=== PATIENT | male | born 1980 | race Caucasian/White ===

== ENCOUNTER 2021-12-19 11:28 | Inpatient (IN) ==
[2021-12-19] MEDS ORDERED: MULTI-VITAMIN INFUSION 10 ML, THIAMINE HCL 100 MG, FOLIC ACID 1 MG in SODIUM CHLORIDE 0... IV ONE (11:46)
[2021-12-19] MEDS ORDERED: SODIUM CHLORIDE 0.9% 1000ML 1,000 ML IV SCH (12:00)
--- NOTE | 2021-12-19 12:00 | Emergency Department Note ---
Impression & Plan Alcoholic intoxication, Suicidal ideations ED Provider Note NAME: ZULEMA WALLS AGE: 41 SEX: M : 1980 ARRIVES VIA: Walk-In INFORMANT: Patient, ED PROVIDER(S): Rick Faria DO CHIEF COMPLAINT: Detox request HPI: The patient is a 41-year-old male who presented to the emergency department for an evaluation of alcohol use. The patient has a history of going through detox many years ago. He has been doing very well and avoiding any alcohol use until approximately 4 months ago. He started drinking again. He presented to the emergency department with a friend. The patient has been using increasing amounts of alcohol especially over the last week. He has been drinking 6-7 high alcohol content beers especially over the last week. He does have a history of DTs in the past. He has had some nausea. He denies having any abdominal pain or chest pain. He denies having any lower extremity swelling or injuries. The patient denies any drug use. He he states that he presented to the emergency department today because he needs help trying to stop drinking but does not want to go through DTs again. Patient did not have a history of seizures. He does admit to some suicidal ideation but no plan. He does not take any chronic medications. ROS: See above HPI for pertinent positives & negatives. A total of 10 systems reviewed and were otherwise negative. PAST MEDICAL HISTORY: See Below PAST SURGICAL HISTORY: See Below FAMILY HISTORY: See Below SOCIAL HISTORY: See Below HOME MEDICATIONS: See Below ALLERGIES: See Below VITALS: See Below PHYSICAL EXAMINATION: GENERAL: The patient is awake and alert. He is somewhat anxious appearing but overall comfortable. EYES: The conjunctivae are clear. The pupils are round and reactive. EARS, NOSE, MOUTH AND THROAT: The nose is without any evidence of any deformity. NECK: The neck is nontender and supple. RESPIRATORY: Normal respiratory effort is noted there is no evidence of wheezing rhonchi or rales CARDIOVASCULAR: Cardiac rate with regular rhythm was noted. There is no definite murmur. GASTROINTESTINAL: The abdomen is soft. Abdomen is nontender. MUSCULOSKELETAL/EXTREMITIES: There is no evidence of gross deformity full range of motion is noted in the hips and shoulders. SKIN: There is no obvious evidence of any rash. There are no petechiae, pallor or cyanosis noted. NEUROLOGIC: Patient is awake alert and oriented x3 strength is symmetric patellar reflexes are 2+ bilaterally PSYCH: The patient makes good eye contact mostly evaluation. He does admit to suicidal ideation but no specific plan. MEDICAL DECISION MAKING: The patient is a 41-year-old male who presented to the emergency department requesting detox. The patient has a history of having DTs in the past. He p resented to the emergency department and also had some suicidal ideation. The patient was medically cleared in the emergency department. He was reevaluated multiple times. He continues to have a very high alcohol. I discussed his plans with him and at this time he would still like to stop drinking altogether. I do feel this could be dangerous given the patient's history of DTs in the past. For this reason [facility] have agreed to evaluate the patient in the emergency department for further management and disposition. The patient's vital signs did improve while he was in the emergency department. Triage Nursing notes reviewed. Prior medical records reviewed Vital Signs: reviewed and remarkable for tachycardia and elevated blood pressure. Differential diagnosis: Overdose, toxicologic, infection, hypoglycemia, electrolyte abnormalities, cardiac sources, intracerebral event, neurologic, trauma, as well as other pathologies. ER treatment provided: See below Diagnostics interpreted by me: ECG: EKG was obtained in the emergency department. My interpretation is normal sinus rhythm at 94 bpm. There is no ectopy. There is no acute ST segment abnormalities noted. No previous tracing was available. Cardiac Monitoring: An order was placed for continuous cardiac monitoring. The monitor shows a rate of 115 bpm with sinus tachycardia Laboratory studies: As stated above and show below. Imaging studies: See below Consultation(s): I discussed this case with Angeline who [facility]. Past Med/Surg History Medical History Chronic alcohol use Tobacco use Surgical History H/O inguinal hernia repair Social History Smoking Status: Current every day smoker Hx Alcohol Use: Yes Alcohol type: beer Hx Substance Use: Yes Preferred Language: Belarusian Allergies Allergies Allergy/AdvReac Type Severity Reaction Status Date / Time No Known Allergies Allergy Verified 12/19/21 13:34 Home Meds Home Medications Medication Instructions Recorded Confirmed No Known Home Medications 12/19/21 12/19/21 Results & Data (ED) Vital Signs Vital Signs - 24 hr 12/19/21 11:30 12/19/21 11:55 12/19/21 12:05 Temperature 36.8 C Temperature Source Temporal Artery Scan Pulse Rate 124 H Pulse Rate [Apical] 96 H Respiratory Rate 20 21 Blood Pressure 166/96 H Blood Pressure [Left Arm] 147/95 H Blood Pressure Mean 119 Blood Pressure Mean [Left Arm] 112 Blood Pressure Position Sitting Pulse Oximetry 96 97 94 Oxygen Delivery Method Room Air Room Air Room Air Sepsis Recent Fever Within 48 Hours No Sepsis New/Unexplained Change in Mental Status N/A Sepsis Action Taken by Nursing No Action Required 12/19/21 12:30 12/19/21 13:30 12/19/21 14:00 Temperature Temperature Source Pulse Rate 88 95 H 105 H Pulse Rate [Apical] Respiratory Rate 19 17 22 Blood Pressure 137/88 139/85 129/68 Blood Pressure [Left Arm] Blood Pressure Mean 104 103 88 Blood Pressure Mean [Left Arm] Blood Pressure Position Pulse Oximetry 93 91 92 Oxygen Delivery Method Sepsis Recent Fever Within 48 Hours Sepsis New/Unexplained Change in Mental Status Sepsis Action Taken by Nursing 12/19/21 14:30 Temperature Temperature Source Pulse Rate 115 H Pulse Rate [Apical] Respiratory Rate 17 Blood Pressure 150/99 H Blood Pressure [Left Arm] Blood Pressure Mean 116 Blood Pressure Mean [Left Arm] Blood Pressure Position Pulse Oximetry 94 Oxygen Delivery Method Sepsis Recent Fever Within 48 Hours Sepsis New/Unexplained Change in Mental Status Sepsis Action Taken by Usp Medications Current Medication List: was personally reviewed by me Laboratory Data Attestation: I reviewed the patient's lab results. Result diagrams: 12/19/21 11:55 12/19/21 11:55 Lab Results 12/19/21 12/19/21 12/19/21 Range/Units 11:40 11:40 11:55 WBC 7.68 (4.8-10.8) K/uL RBC 5.12 (4.7-6.1) M/uL Hgb 18.0 (14.0-18.0) g/dL Hct 50.8 (42-52) % MCV 99.2 (80-100) fL MCH 35.2 H (25-34) pg MCHC 35.4 (32-36) g/dL RDW Std Deviation 47.3 H (36.4-46.3) fL RDW Coeff of Ivy 13.0 (11.5-14.5) % Plt Count 168 (130-400) K/uL MPV 9.9 (7.4-10.4) fL Immature Gran % (Auto) 0.1 % Neut % (Auto) 64.8 % Lymph % (Auto) 21.6 % [place] % (Auto) 11.7 % Eos % (Auto) 0.8 % Baso % (Auto) 1.0 % Neut # (Auto) 4.97 (1.4-6.5) K/uL Lymph # (Auto) 1.66 (1.2-3.4) K/uL [place] # (Auto) 0.90 H (0.11-0.59) K/uL Eos # (Auto) 0.06 (0-0.5) K/uL Baso # (Auto) 0.08 (0-0.2) K/uL Immature Gran # (Auto) 0.01 (0.00-0.02) K/uL PT (9.0-12.0) Seconds INR (0.9-1.1) APTT (21.0-31.0) Seconds PTT Ratio Sodium (136-145) mmol/L Potassium (3.5-5.1) mmol/L Chloride (98-107) mmol/L Carbon Dioxide (21-32) mmol/L Anion Gap (3-11) BUN (6-23) mg/dl Creatinine (0.6-1.4) mg/dl Est Cr Clr Drug Dosing ml/min Est GFR ( Amer) ml/min Est GFR (Non-Af Amer) ml/min BUN/Creatinine Ratio (10-20) Glucose (70-99(Fasting)) mg/dl Calcium (8.5-10.1) mg/dl Magnesium (1.7-2.4) mg/dl Total Bilirubin (0.2-1.0) mg/dl AST (13-39) U/L ALT (7-52) U/L Alkaline Phosphatase (34-104) U/L Total Creatine Kinase (30-223) U/L Total Protein (6.0-8.3) gm/dl Albumin (3.4-5.0) gm/dl Globulin (2.5-4.0) gm/dl Albumin/Globulin Ratio (0.9-2) Lipase (11-82) U/L Urine Color Dark Yellow Urine Appearance Clear (Clear) Urine pH 6.5 (4.5-7.5) Ur Specific [place] 1.022 (1.000-1.030) Urine Protein Negative (Negative) Urine Glucose (UA) Negative (Negative) Urine Ketones Trace H (Negative) Urine Blood Negative (Negative) Urine Nitrite Negative (Negative) Urine Bilirubin Negative (Negative) Urine Urobilinogen Negative (Negative) Ur Leukocyte Esterase Negative (Negative) Salicylates (3.0-30) mg/dl Urine Opiates Screen Neg (Neg) Ur Methadone, Qual Neg (Neg) Acetaminophen (10-30) ug/ml Urine Barbiturates Neg (Neg) Ur Phencyclidine (PCP) Neg (Neg) U Amphetamin/Meth Scrn Neg (Neg) MDMA (Ecstasy) Screen Neg (Neg) U Benzodiazepines Scrn Neg (Neg) Ur Cocaine Metabolite Neg (Neg) U Marijuana (THC) Screen Neg (Neg) Ethyl Alcohol mg/dL (<10.0) mg/dl SARS-CoV-2, RNA, NAAT (NEGATIVE) 12/19/21 12/19/21 12/19/21 Range/Units 11:55 11:55 11:55 WBC (4.8-10.8) K/uL RBC (4.7-6.1) M/uL Hgb (14.0-18.0) g/dL Hct (42-52) % MCV (80-100) fL MCH (25-34) pg MCHC (32-36) g/dL RDW Std Deviation (36.4-46.3) fL RDW Coeff of Ivy (11.5-14.5) % Plt Count (130-400) K/uL MPV (7.4-10.4) fL Immature Gran % (Auto) % Neut % (Auto) % Lymph % (Auto) % [place] % (Auto) % Eos % (Auto) % Baso % (Auto) % Neut # (Auto) (1.4-6.5) K/uL Lymph # (Auto) (1.2-3.4) K/uL [place] # (Auto) (0.11-0.59) K/uL Eos # (Auto) (0-0.5) K/uL Baso # (Auto) (0-0.2) K/uL Immature Gran # (Auto) (0.00-0.02) K/uL PT 9.8 (9.0-12.0) Seconds INR 0.9 (0.9-1.1) APTT 25.2 (21.0-31.0) Seconds PTT Ratio 0.9 Sodium 138 (136-145) mmol/L Potassium 4.1 (3.5-5.1) mmol/L Chloride 99 (98-107) mmol/L Carbon Dioxide 26 (21-32) mmol/L Anion Gap 13 H (3-11) BUN 13 (6-23) mg/dl Creatinine 0.93 (0.6-1.4) mg/dl Est Cr Clr Drug Dosing 103.2 ml/min Est GFR ( Amer) 119.4 ml/min Est GFR (Non-Af Amer) 103.0 ml/min BUN/Creatinine Ratio 14.0 (10-20) Glucose 103 H (70-99(Fasting)) mg/dl Calcium 8.9 (8.5-10.1) mg/dl Magnesium 2.3 (1.7-2.4) mg/dl Total Bilirubin 0.7 (0.2-1.0) mg/dl AST 46 H (13-39) U/L ALT 18 (7-52) U/L Alkaline Phosphatase 49 (34-104) U/L Total Creatine Kinase 193 (30-223) U/L Total Protein 8.0 (6.0-8.3) gm/dl Albumin 4.3 (3.4-5.0) gm/dl Globulin 3.7 (2.5-4.0) gm/dl Albumin/Globulin Ratio 1.2 (0.9-2) Lipase 67 (11-82) U/L Urine Color Urine Appearance (Clear) Urine pH (4.5-7.5) Ur Specific [place] (1.000-1.030) Urine Protein (Negative) Urine Glucose (UA) (Negative) Urine Ketones (Negative) Urine Blood (Negative) Urine Nitrite (Negative) Urine Bilirubin (Negative) Urine Urobilinogen (Negative) Ur Leukocyte Esterase (Negative) Salicylates (3.0-30) mg/dl Urine Opiates Screen (Neg) Ur Methadone, Qual (Neg) Acetaminophen (10-30) ug/ml Urine Barbiturates (Neg) Ur Phencyclidine (PCP) (Neg) U Amphetamin/Meth Scrn (Neg) MDMA (Ecstasy) Screen (Neg) U Benzodiazepines Scrn (Neg) Ur Cocaine Metabolite (Neg) U Marijuana (THC) Screen (Neg) Ethyl Alcohol mg/dL 385.6 H (<10.0) mg/dl SARS-CoV-2, RNA, NAAT (NEGATIVE) 12/19/21 12/19/21 Range/Units 12:26 14:25 WBC (4.8-10.8) K/uL RBC (4.7-6.1) M/uL Hgb (14.0-18.0) g/dL Hct (42-52) % MCV (80-100) fL MCH (25-34) pg MCHC (32-36) g/dL RDW Std Deviation (36.4-46.3) fL RDW Coeff of Ivy (11.5-14.5) % Plt Count (130-400) K/uL MPV (7.4-10.4) fL Immature Gran % (Auto) % Neut % (Auto) % Lymph % (Auto) % [place] % (Auto) % Eos % (Auto) % Baso % (Auto) % Neut # (Auto) (1.4-6.5) K/uL Lymph # (Auto) (1.2-3.4) K/uL [place] # (Auto) (0.11-0.59) K/uL Eos # (Auto) (0-0.5) K/uL Baso # (Auto) (0-0.2) K/uL Immature Gran # (Auto) (0.00-0.02) K/uL PT (9.0-12.0) Seconds INR (0.9-1.1) APTT (21.0-31.0) Seconds PTT Ratio Sodium (136-145) mmol/L Potassium (3.5-5.1) mmol/L Chloride (98-107) mmol/L Carbon Dioxide (21-32) mmol/L Anion Gap (3-11) BUN (6-23) mg/dl Creatinine (0.6-1.4) mg/dl Est Cr Clr Drug Dosing ml/min Est GFR ( Amer) ml/min Est GFR (Non-Af Amer) ml/min BUN/Creatinine Ratio (10-20) Glucose (70-99(Fasting)) mg/dl Calcium (8.5-10.1) mg/dl Magnesium (1.7-2.4) mg/dl Total Bilirubin (0.2-1.0) mg/dl AST (13-39) U/L ALT (7-52) U/L Alkaline Phosphatase (34-104) U/L Total Creatine Kinase (30-223) U/L Total Protein (6.0-8.3) gm/dl Albumin (3.4-5.0) gm/dl Globulin (2.5-4.0) gm/dl Albumin/Globulin Ratio (0.9-2) Lipase (11-82) U/L Urine Color Urine Appearance (Clear) Urine pH (4.5-7.5) Ur Specific [place] (1.000-1.030) Urine Protein (Negative) Urine Glucose (UA) (Negative) Urine Ketones (Negative) Urine Blood (Negative) Urine Nitrite (Negative) Urine Bilirubin (Negative) Urine Urobilinogen (Negative) Ur Leukocyte Esterase (Negative) Salicylates < 3.0 L (3.0-30) mg/dl Urine Opiates Screen (Neg) Ur Methadone, Qual (Neg) Acetaminophen < 3 L (10-30) ug/ml Urine Barbiturates (Neg) Ur Phencyclidine (PCP) (Neg) U Amphetamin/Meth Scrn (Neg) MDMA (Ecstasy) Screen (Neg) U Benzodiazepines Scrn (Neg) Ur Cocaine Metabolite (Neg) U Marijuana (THC) Screen (Neg) Ethyl Alcohol mg/dL (<10.0) mg/dl SARS-CoV-2, RNA, NAAT NEGATIVE (NEGATIVE) Administered Medications Discontinued Medications Sodium Chloride (Nss 1000ml) 1,000 mls @ 999 mls/hr IV .Q1H1M [place] Stop: 12/19/21 13:00 Last Infusion: 12/19/21 13:02 Dose: 0 mls/hr Documented by: [id number] Admin: 12/19/21 12:01 Dose: 999 mls/hr Documented by: [id number] Multivitamins 10 ml/ Thiamine HCl 100 mg/ Folic Acid 1 mg/Sodium Chloride 1,011.2 mls @ 1,011.2 mls/hr IV .Q1H ONE Stop: 12/19/21 12:45 Last Infusion: 12/19/21 13:45 Dose: 0 mls/hr Documented by: [id number] Admin: 12/19/21 12:42 Dose: 1,011.2 mls/hr Documented by: [id number] Discharge Plan Visit Data Chief Complaint: Detox Request Stated Complaint: MENTAL HEALTH ISSUE, DETOXING ED Provider: Rick Faria Discharge Problem: Alcoholic intoxication, Suicidal ideations Patient Disposition: Being Evaluated by Hospitalist Forms Stand Alone Forms: [facility], Suicide Prevention Resources Prescriptions Prescriptions: No Action No Known Home Medications RF: 0 Referrals Referrals: PCP,NO [Primary Care Provider] - Discharge Problem: Alcoholic intoxication Qualifiers: Complication of substance-induced condition: uncomplicated Qualified Code(s): F10.920 - Alcohol use, unspecified with intoxication, uncomplicated
[2021-12-19 12:13] LABS: Appearance Urine Clear (Clear); Bilirubin Urine Negative (Negative); Blood Urine Negative (Negative); Color Urine Dark Yellow; Glucose Urine UA Negative (Negative); Ketones Urine Trace (Negative); Leukocyte Esterase Urine Negative (Negative); Nitrite Urine Negative (Negative); Protein Urine Negative (Negative); Specific Gravity Urine 1.022 (1.000-1.030); Urobilinogen Urine Negative (Negative); pH Urine 6.5 (4.5-7.5)
[2021-12-19 12:19] LABS: Basophils # (auto) 0.08 K/uL (0-0.2); Eosinophils # (auto) 0.06 K/uL (0-0.5); Eosinophils % (auto) 0.8 %; Hematocrit (blood only) 50.8 % (42-52); Immature Granulocytes # (auto) 0.01 K/uL (0.00-0.02); Immature Granulocytes % (auto) 0.1 %; Lymphocytes # (auto) 1.66 K/uL (1.2-3.4); Lymphocytes % (auto) 21.6 %; Mean Corpuscular Hemoglobin 35.2 pg (25-34); Mean Corpuscular Hgb Conc 35.4 g/dL (32-36); Mean Corpuscular Volume 99.2 fL (80-100); Mean Platelet Volume 9.9 fL (7.4-10.4); Monocytes % (auto) 11.7 %; Neutrophils # (auto) 4.97 K/uL (1.4-6.5); Neutrophils % (auto) 64.8 %; Platelet Count 168 K/uL (130-400); RDW Standard Deviation 47.3 fL (36.4-46.3); Red Blood Count 5.12 M/uL (4.7-6.1); White Blood Count 7.68 K/uL (4.8-10.8)
[2021-12-19 12:24] LABS: INR 0.9 (0.9-1.1); Partial Thromboplastin Ratio 0.9; Partial Thromboplastin Time 25.2 Seconds (21.0-31.0); Prothrombin Time 9.8 Seconds (9.0-12.0)
[2021-12-19 12:45] LABS: Albumin Globulin Ratio 1.2 (0.9-2); Albumin Level 4.3 gm/dl (3.4-5.0); Bilirubin,Total 0.7 mg/dl (0.2-1.0); Calcium 8.9 mg/dl (8.5-10.1); Creatinine Clr Calc Pharmacy 103.2 ml/min; Est GFR (African American) 119.4 ml/min; Globulin 3.7 gm/dl (2.5-4.0); Magnesium 2.3 mg/dl (1.7-2.4); Potassium 4.1 mmol/L (3.5-5.1)
[2021-12-19 12:54] LABS: Amphetamines+Metham, Urine Neg (Neg); Barbiturates, Urine Neg (Neg); Benzodiazepine, Urine Neg (Neg); Cocaine, Urine Neg (Neg); MDMA (Ecstacy), Urine Neg (Neg); Methadone, Urine Neg (Neg); Opiate, Urine Neg (Neg); Phencyclidine, Urine Neg (Neg)
[2021-12-19 13:00] LABS: Acetaminophen < 3 ug/ml (10-30); Salicylate < 3.0 mg/dl (3.0-30)
[2021-12-19] MEDS ORDERED: GABAPENTIN 1200MG ALCOHOL WITHDRAWAL LOAD PO STA (14:43)
--- NOTE | 2021-12-19 15:14 | Electrocardiogram Report ---
Test Reason : Blood Pressure : / mmHG Vent. Rate : 094 BPM Atrial Rate : 094 BPM P-R Int : 136 ms QRS Dur : 094 ms QT Int : 336 ms P-R-T Axes : 064 050 032 degrees QTc Int : 420 ms Normal sinus rhythm Normal ECG No previous ECGs available Confirmed by Luis Barcenas ([id number]) on 12/19/2021 3:13:51 PM Referred By: Confirmed By:Carlos A Barcenas
--- NOTE | 2021-12-19 15:27 | History & Physical Report ---
Date of Service December 19, 2021 Assessment & Plan (1) Alcoholic intoxication: (2) Suicidal ideations: (3) Tobacco abuse: (4) Depression: Plan: 41-year-old male who has significant past medical history of alcohol abuse, tobacco abuse, marijuana use and depression who presents to ED requesting detoxification request x1 day. Patient previously has prior history of alcohol abuse and has been sober for 6 years. He states he relapsed approximately 2 to 3 weeks ago. His last drink was a.m. of admission. Alcohol abuse/intoxication hx of DTs admit to pcu pt presents to detox request, in setting of hx of DT will admit Gabapentin taper, IV ativan prn daily thiamine, folic acid continue IVF for now awss per protocol Depression Suicidal ideations consult psych 1:1, safe tray, suicide precautions pt denies active plan or homicidal ideations Tobacco abuse nicotine patch encourage cessation DVT ppx: none, ambulate Dispo: PCU, pt denies rehab stating it interferes with prior obligations, strongly encourage pt to attend rehab given relapse PCP: None, pt agrees to establish with PCP FULL CODE Pt was seen and examined in collaboration with Dr. Michael, please see addendum History of Present Illness Chief Complaint: Detox request x 1 day. Primary Care Provider: NO PCP 41-year-old male who has significant past medical history of alcohol abuse, tobacco abuse, marijuana use and depression who presents to ED requesting detoxification request x1 day. Patient previously has prior history of alcohol abuse and has been sober for 6 years. He states he relapsed approximately 2 to 3 weeks ago. His last drink was this morning. He is drinking 5-6 heavy alcohol content beers daily. He states he drinks from a son up to and when he wakes up he starts over again. His last drink was this morning. Over the last 2 to 3 days he also notes increased depression and thoughts of wanting to harm himself. He denies any homicidal ideation and also denies any specific plan to carrying out the suicide thoughts. He admits to prior history of depression in the past and previously had been treated with Prozac and Vistaril. He feels these medications has made his depression worse. He does not see a PCP or outpatient psychiatry or counselor on a regular basis. He states this is what he does for his job and his job has become more stressful. When asked about an inciting event that brought about his relapse he states increased responsibilities at work as well as personal relationships. Continues to smoke a pack of cigarettes a day. He also used marijuana approximately 24 to 36 hours ago but does not use this on a regular basis. He denies any family history of substance abuse or mental health disorders. He states, "I'm the black sheep in the family." He otherwise denies any recent illness, fever, chills, sweats, lightheadedness, dizziness, chest pain, shortness of breath, cough, nausea, vomit, abdominal pain, changes bowel or urinary habits. He does have prior history of alcohol pancreatitis as well as delirium tremens. He denies any seizure-like activity with withdrawal. He states its been many years since he went through withdrawal and is anxious. Allergies Allergy/AdvReac Type Severity Reaction Status Date / Time No Known Allergies Allergy Verified 12/19/21 13:34 Home Medications Medication Instructions Recorded Confirmed Type No Known Home Medications 12/19/21 12/19/21 History Past Med/Surg History Medical History Chronic alcohol use Depression Tobacco use Surgical History H/O inguinal hernia repair Family History (Updated 12/19/21 @ 15:19 by Angeline Loya PA-C) Denies family history of Depression Heart disease Hypertension Stroke Social History (Updated 12/19/21 @ 15:19 by Angeline Loya PA-C) Smoking Status: Current every day smoker packs per day: 1; Years Smoked: 15; Cigarettes Per Day: 20; Hx Alcohol Use: Yes Alcohol type: beer Alcohol Intake Frequency: 4 or More x per/Week Alcohol Intake Frequency Comment: daily, 5-6 heavy alcohol content 24oz beers Hx Substance Use: Yes Non-Prescribed Medications: Marijuana Preferred Language: Upper Sorbian current occupational status: employed Review of Systems Review of Systems: All systems reviewed & are unremarkable except as noted in HPI & below Physical Exam Physical Exam: Constitutional: WD/WN, vitals as above, NAD, sitting up in bed, answers questions approp, smells of alcohol, poor eye contact, tearful Head: Normocephalic, Atraumatic Eyes: injected conjunctiva b/l, PERRL,anicteric sclerae ENMT: external ear and nose normal, oropharynx normal Neck: trachea midline, no thyromegaly normal visual inspection Respiratory: normal respiratory effort, lungs clear to auscultation, no wheeze, rales, rhonchi. Normal insp/exp effort, no accessory muscle use Cardiovascular: Tachycardic rate, regular, no murmur, no edema Vessels: no JVD or carotid bruit Chest: normal inspection of chest Abdomen: normal bowel sounds, soft, nontender, no hepatosplenomegaly Musculoskeletal: no cyanosis or clubbing, AROM x 4 Skin: no rashes, warm and dry normal turgor Neurologic: PERRL, EOMI, accommodation nl, no face palsy, no dysarthria CN's II-XI intact bilaterally and moves all extremities Psychiatric: A+Ox3, dysthymic affect : deferred Results & Data Results & Data ([facility]) Vital Signs (Past 12 Hours) Vital Signs Temp Pulse Pulse Resp BP BP Pulse Ox 12/19/21 15:00 105 H 15 141/88 H 93 12/19/21 14:30 115 H 17 150/99 H 94 12/19/21 14:00 105 H 22 129/68 92 12/19/21 13:30 95 H 17 139/85 91 12/19/21 12:30 88 19 137/88 93 12/19/21 12:05 96 H 21 147/95 H 94 12/19/21 11:55 97 12/19/21 11:30 36.8 C 124 H 20 166/96 H 96 Medications Administered Medication List Gabapentin (Gabapentin 1200mg Loading Dose) 1,200 mg PO TODAY@1600 [facility] Stop: 01/18/22 15:59 Last Admin: 12/19/21 15:07 Dose: 1,200 mg Documented by: [id number] Discontinued Medications Gabapentin (Gabapentin 1200mg Alcohol Withdrawal Load) 1 ea PO NOW STA; Protocol Stop: 12/19/21 14:44 Last Admin: 12/19/21 15:08 Dose: Not Given Documented by: [id number] Sodium Chloride (Nss 1000ml) 1,000 mls @ 999 mls/hr IV .Q1H1M [facility] Stop: 12/19/21 13:00 Last Infusion: 12/19/21 13:02 Dose: 0 mls/hr Documented by: [id number] Admin: 12/19/21 12:01 Dose: 999 mls/hr Documented by: [id number] Multivitamins 10 ml/ Thiamine HCl 100 mg/ Folic Acid 1 mg/Sodium Chloride 1,011.2 mls @ 1,011.2 mls/hr IV .Q1H ONE Stop: 12/19/21 12:45 Last Infusion: 12/19/21 13:45 Dose: 0 mls/hr Documented by: [id number] Admin: 12/19/21 12:42 Dose: 1,011.2 mls/hr Documented by: [id number] ECG Rate (beats per minute): 94 Rhythm: normal sinus COVID-19 Results Results COVID-19 Adm Lab Results: RBC 5.12 M/uL (4.7-6.1) 12/19/21 WBC 7.68 K/uL (4.8-10.8) 12/19/21 Hgb 18.0 g/dL (14.0-18.0) 12/19/21 Hct 50.8 % (42-52) 12/19/21 Plt Count 168 K/uL (130-400) 12/19/21 Neutrophils (%) (Auto) 64.8 % 12/19/21 Lymphocytes (%) (Auto) 21.6 % 12/19/21 Monocytes # (Auto) 0.90 K/uL (0.11-0.59) H 12/19/21 Eosinophils # (Auto) 0.06 K/uL (0-0.5) 12/19/21 Immature Granulocyte % (Auto) 0.1 % 12/19/21 Neutrophils # (Auto) 4.97 K/uL (1.4-6.5) 12/19/21 Lymphocytes # (Auto) 1.66 K/uL (1.2-3.4) 12/19/21 Monocytes # (Auto) 0.90 K/uL (0.11-0.59) H 12/19/21 Eosinophils # (Auto) 0.06 K/uL (0-0.5) 12/19/21 Basophils # (Auto) 0.08 K/uL (0-0.2) 12/19/21 Immature Granulocyte # (Auto) 0.01 K/uL (0.00-0.02) 12/19/21 Na 138 mmol/L (136-145) 12/19/21 K 4.1 mmol/L (3.5-5.1) 12/19/21 Cl 99 mmol/L (98-107) 12/19/21 CO2 26 mmol/L (21-32) 12/19/21 Anion Gap 13 (3-11) H 12/19/21 BUN 13 mg/dl (6-23) 12/19/21 Creatinine 0.93 mg/dl (0.6-1.4) 12/19/21 BUN/Creatinine Ratio 14.0 (10-20) 12/19/21 Glucose Level 103 mg/dl (70-99(Fasting)) H 12/19/21 Ca 8.9 mg/dl (8.5-10.1) 12/19/21 Total Bilirubin 0.7 mg/dl (0.2-1.0) 12/19/21 AST/SGOT 46 U/L (13-39) H 12/19/21 ALT/SGPT 18 U/L (7-52) 12/19/21 Alkaline Phosphatase 49 U/L (34-104) 12/19/21 Total Protein 8.0 gm/dl (6.0-8.3) 12/19/21 Albumin 4.3 gm/dl (3.4-5.0) 12/19/21 Globulin 3.7 gm/dl (2.5-4.0) 12/19/21 Albumin/Globulin Ratio 1.2 (0.9-2) 12/19/21 Total CK 193 U/L (30-223) 12/19/21 PTT 25.2 Seconds (21.0-31.0) 12/19/21 INR 0.9 (0.9-1.1) 12/19/21 SARS-CoV-2, RNA, NAAT NEGATIVE (NEGATIVE) 12/19/21 Code Status & VTE Plan Code Status FULL CODE VTE Prophylaxis Plan VTE Prophylaxis will be ordered: No Supervising Physician Co-Signing Physician Notes Patient was seen and examined independently at bedside. Chart reviewed, case discussed with Angeline MAYES and agree with the documentation above. In summary, Bruno is a 41 year old male with h/o alcohol abuse, tobacco abuse, marijuana abuse who presented to the ED for alcohol abuse seeking detox and suicidal ideation. He had been sober of alcohol for 6 years prior to relapsing 2-3 weeks ago. Last drink was this morning. History of alcohol withdrawal complications with DT in the past. Also has been having involuntary suicidal thoughts involving knife for the past few days but no active plan or attempts; denies any hallucinations. He is mainly concerned about his mental health issue and was asking what the plan would be to address it. AAOx3, sitting comfortably in bed, no withdrawal symptoms as of now, no tremors, chest clear, heart sounds normal, abdomen benign, no edema. Will admit to PCU on telemetry and start on librium taper with ativan prn, given his complicated alcohol withdrawal in the past. Continue AWSS protocol. Will keep on 1:1 until psych evaluation for his suicidal thoughts. NicoDerm patch for tobacco abuse. He declines inpatient alcohol rehab. Rest as per the note above. (1) Alcoholic intoxication Complication of substance-induced condition: uncomplicated Qualified Code(s): F10.920 - Alcohol use, unspecified with intoxication, uncomplicated
[2021-12-19] MEDS ORDERED: GABAPENTIN 1200MG LOADING DOSE PO SCH (16:00)
[2021-12-19] MEDS ORDERED: ONDANSETRON INJ 2 MG/ML 2 ML VIAL IV PRN (17:56)
[2021-12-19] MEDS ORDERED: ATIVAN IV ALCOHOL WITHDRAWL IV PRN (17:56)
[2021-12-19] MEDS ORDERED: GABAPENTIN 600 MG TAB PO ONE (17:56)
[2021-12-19] MEDS ORDERED: MAGNESIUM HYDROXIDE SUSP 30 ML UDC PO PRN (17:56)
[2021-12-19] MEDS ORDERED: ALUMINUM/MAGNESIUM SUSP 30 ML UDC PO PRN (17:56)
[2021-12-19] MEDS ORDERED: ACETAMINOPHEN 325 MG TAB PO PRN (17:56)
[2021-12-19] MEDS ORDERED: POLYETHYLENE (MIRALAX) 17 GM PACK PO PRN (17:56)
[2021-12-19] MEDS ORDERED: LORazepam 2 MG/1 ML VIAL IV PRN ×3 (17:56)
[2021-12-19] MEDS: SODIUM CHLORIDE 0.9% 1000ML 1,000 ML IV SCH (18:32)
[2021-12-19] MEDS: NICOTINE 21 MG/24 HR TDSY TD SCH (18:33)
[2021-12-19] MEDS: FOLIC ACID 1 MG TAB PO SCH (18:33)
[2021-12-19] MEDS: THIAMINE HCL 100 MG TAB PO SCH (18:33)
[2021-12-19] MEDS: chlordiazePOXIDE HCl 25 MG CAP PO SCH (19:55)
[2021-12-19] MEDS ORDERED: chlordiazePOXIDE ALCOHOL WITHDRAWL 50MG PO SCH (20:00)
[2021-12-19] MEDS ORDERED: GABAPENTIN 600 MG TAB PO SCH (20:45)
[2021-12-19] MEDS ORDERED: GABAPENTIN 600MG Q6H DOSE PO SCH (22:00)
[2021-12-20] MEDS: chlordiazePOXIDE HCl 25 MG CAP PO SCH ×3 (01:53→15:00)
[2021-12-20] MEDS: SODIUM CHLORIDE 0.9% 1000ML 1,000 ML IV SCH ×2 (03:16→14:23)
[2021-12-20 06:59] LABS: Basophils # (auto) 0.03 K/uL (0-0.2); Basophils % (auto) 0.5 %; Eosinophils % (auto) 1.8 %; Hematocrit (blood only) 40.4 % (42-52); Hemoglobin 13.8 g/dL (14.0-18.0); Immature Granulocytes # (auto) 0.01 K/uL (0.00-0.02); Immature Granulocytes % (auto) 0.2 %; Lymphocytes # (auto) 1.16 K/uL (1.2-3.4); Lymphocytes % (auto) 20.9 %; Mean Corpuscular Hemoglobin 34.9 pg (25-34); Mean Corpuscular Hgb Conc 34.2 g/dL (32-36); Mean Corpuscular Volume 102.3 fL (80-100); Mean Platelet Volume 9.9 fL (7.4-10.4); Monocytes # (auto) 0.63 K/uL (0.11-0.59); Monocytes % (auto) 11.3 %; Neutrophils # (auto) 3.63 K/uL (1.4-6.5); Neutrophils % (auto) 65.3 %; Platelet Count 120 K/uL (130-400); RDW Coefficient of Variation 12.7 % (11.5-14.5); RDW Standard Deviation 48.5 fL (36.4-46.3); Red Blood Count 3.95 M/uL (4.7-6.1); White Blood Count 5.56 K/uL (4.8-10.8)
[2021-12-20 07:17] LABS: Albumin Globulin Ratio 1.3 (0.9-2); Albumin Level 3.1 gm/dl (3.4-5.0); BUN Creatinine Ratio 14.5 (10-20); Bilirubin,Total 1.2 mg/dl (0.2-1.0); Calcium 7.9 mg/dl (8.5-10.1); Creatinine Clr Calc Pharmacy 126.3 ml/min; Est GFR (African American) 133.2 ml/min; Est GFR (Non-African American) 114.9 ml/min; Globulin 2.4 gm/dl (2.5-4.0); Magnesium 1.9 mg/dl (1.7-2.4); Total Protein 5.5 gm/dl (6.0-8.3)
[2021-12-20] MEDS: THIAMINE HCL 100 MG TAB PO SCH (08:39)
[2021-12-20] MEDS: NICOTINE 21 MG/24 HR TDSY TD SCH (08:39)
[2021-12-20] MEDS: FOLIC ACID 1 MG TAB PO SCH (08:39)
[2021-12-20] MEDS ORDERED: GABAPENTIN 600 MG TAB PO SCH (10:45)
--- NOTE | 2021-12-20 13:13 | Psychiatric Consultation ---
Date of Consultation December 20, 2021 Impression / Recommendations Impression 41 yo man with relapse of alcohol use in context of relationship stressor from past trauma admitted for alcohol withdrawal. Diagnostically consistent with alcohol use disorder and adjustment disorder with mixed emotions. At this point risk of harm to self is low given denial of SI, stable mood, no hx prior attempts, no access to lethal means, hopeful, future-oriented, many reasons to live and motivated to seek treatment for alcohol use and past trauma impact on his current relationship. Chronic risk is low but slightly increased due to history of substance use with substance use treatment being the most significant modifiable risk factor to reduce acute and chronic risk. He does not meet criteria for nor desires inpatient psychiatric treatment. They are not interested in residential treatment at this time but are agreeable to outpatient services to help with substance use and medication assisted treatment. Liver enzymes reviewed and ALT stable, AST slightly elevated (<2x max limit) and stable for treatment with naltrexone and no concurrent opioids. Reviewed risks and benefits of naltrexone including but not limited to liver enzyme changes, potential impact on mood and he consented to starting this. (1) Alcohol use disorder: (2) Adjustment disorder with mixed emotional features: -discontinue 1-on-1 and discontinue suicide precautions -start naltrexone 25mg qd for 3 days then increase to 50mg qd -Psychiatric liason set him up with [place] outpatient follow-up for dual diagnosis therapy -Continue to attend AA/NA -Patient is not an imminent danger to self or others and does not meet criteria for involuntary psychiatric commitment -Continue AWSS as well as thiamine and folic acid Risk Factors Assessment Do You Have Access To A Gun?: No Psych History Identifying Data 41 yo man with a history of alcohol use disorder, had been in sustained remission until about 1 month ago, depression, anxiety and PTSD admitted medically for alcohol withdrawal. Psychiatry was consulted for risk assessment. Chief Complaint "I feel much better". History of Present Illness Bruno reports relapse of alcohol use about 1 month ago in the context of relationship stressors due to his current relationship becoming more serious but this brining up past fears due to a history of trauma with past girlfriend dying by suicide. Over the last week his alcohol use has significantly increased to the point of drinking all weekend and then having to call off from work. While intoxicated yesterday he developed "fleeting thought of suicide" without plan or intent but he's never had SI before so this prompted him to reach out to a friend and come to the ED for help. Since the fleeting SI yesterday prior to admission, which lasted less than 3 minutes, he has had no further SI. He denies current SI and endorses many reasons for living including "everything-my family, great friends, I love my job, I have a really good relationship". He denies any prior suicide attempts. Has no access to a gun. No history of prior psychiatric admissions. Prior to current alcohol relapse he had been sober for 6 years. Prior to that history of heavy alcohol use. Psychiatric ROS negative for symptoms of depression, anxiety, coretta nor psychosis. Past Psychiatric History Outpatient Services: none currently but attends regular AA and NA meetings Previous Psych Admissions: none Do You Have Access To A Gun?: No History of Previous Suicide Attempt: No Past Medication Trials: many years ago fluoxetine and Vistaril Allergies Allergy/AdvReac Type Severity Reaction Status Date / Time No Known Allergies Allergy Verified 12/19/21 13:34 Home Medications Medication Instructions Recorded Confirmed Type No Known Home Medications 12/19/21 12/19/21 History Substance Abuse History see HPI Personal History Employment Status: [employer] Employed Beliefs That Will Affect Care: None Patient History Medical History Chronic alcohol use Depression Tobacco use Surgical History H/O inguinal hernia repair Family History Denies family history of Depression Heart disease Hypertension Stroke Social History Smoking Status: Current every day smoker packs per day: 1; Years Smoked: 15; Cigarettes Per Day: 20; Hx Alcohol Use: Yes Alcohol type: beer Alcohol Intake Frequency: 4 or More x per/Week Alcohol Intake Frequency Comment: daily, 5-6 heavy alcohol content 24oz beers Hx Substance Use: Yes Non-Prescribed Medications: Marijuana Last Used Substance: Just Prior to Arrival Preferred Language: Hungarian Beliefs That Will Affect Care: None Current Living Situation: Alone current occupational status: employed Other Information That Helps Us Care for You: No Feels Safe at Home: Yes Safety Concerns: Feels Safe At This Time Assistive Devices: None Physical Exam Psychiatric: Orientation: alert and oriented x 3 Apperance: appropriately dressed and appropriately groomed Eye Contact: good eye contact Motor Behavior: no abnormal motor movements Speech: normal rate/rhythm/volume of speech Affect: euthymic affect Mood: no depressed mood, no anxious mood and no irritable mood Thought Process: goal directed thought process Thought Content: reality based without delusions Suicidal Thoughts: denies suicidal thoughts Homicidal Thoughts: denies homicidal thoughts Hallucinations: no auditory hallucinations and no visual hallucinations Cognition: recent memory grossly intact, remote memory grossly intact, attention grossly intact and language grossly intact Estimated Intelligence: consistent with education level Insight: + fair insight Judgement: + fair judgement Vital Signs (Past 24 Hours): Last Vital Signs Temp 36.6 C 12/20/21 11:38 Pulse 71 12/20/21 11:38 Resp 18 12/20/21 11:38 BP 154/94 H 12/20/21 11:38 Pulse Ox 97 12/20/21 11:38 Review of Systems All systems reviewed & are unremarkable except as noted in HPI & below Results & Data (PSY) Laboratory Results reviewed AST, ALT Medications Administered Chlordiazepoxide HCl (Chlordiazepoxide Hcl 25 Mg Cap) 50 mg PO Q6H [facility]; Taper Stop: 12/22/21 19:59 Last Admin: 12/20/21 08:41 Dose: 50 mg Documented by: [id number] Admin: 12/20/21 01:53 Dose: 50 mg Documented by: [id number] Admin: 12/19/21 19:55 Dose: 50 mg Documented by: [id number] Folic Acid (Folic Acid 1 Mg Tab) 1 mg PO QAM [facility] Stop: 01/18/22 17:55 Last Admin: 12/20/21 08:39 Dose: 1 mg Documented by: [id number] Admin: 12/19/21 18:33 Dose: 1 mg Documented by: [id number] Miscellaneous (Remove Nicoderm Patch) 1 ea N/A [id number] [facility] Stop: 01/19/22 08:58 Last Admin: 12/20/21 08:39 Dose: 1 ea Documented by: [id number] Nicotine (Nicotine 21 Mg/24 Hr Tdsy) 21 mg TD QAM [facility] Stop: 01/18/22 17:55 Last Admin: 12/20/21 08:39 Dose: 21 mg Documented by: [id number] Admin: 12/19/21 18:33 Dose: 21 mg Documented by: [id number] Thiamine HCl (Thiamine Hcl 100 Mg Tab) 100 mg PO QAM [facility] Stop: 01/18/22 17:55 Last Admin: 12/20/21 08:39 Dose: 100 mg Documented by: [id number] Admin: 12/19/21 18:33 Dose: 100 mg Documented by: [id number] Coding Level of Care Code 53065 Inpt Consult Level 3 Diagnoses Alcohol use disorder Adjustment disorder with mixed emotional features F43.29 Time Spent (min) 25
[2021-12-20] MEDS ORDERED: NALTREXONE HCL 50 MG TAB PO SCH (13:30)
[2021-12-20] MEDS ORDERED: GABAPENTIN 600MG Q8H DOSE PO SCH (14:00)
--- NOTE | 2021-12-20 17:31 | Discharge Summary ---
Date of Service December 20, 2021 Admission HPI Per Admitting Provider 41-year-old male who has significant past medical history of alcohol abuse, tobacco abuse, marijuana use and depression who presents to ED requesting detoxification request x1 day. Patient previously has prior history of alcohol abuse and has been sober for 6 years. He states he relapsed approximately 2 to 3 weeks ago. His last drink was this morning. He is drinking 5-6 heavy alcohol content beers daily. He states he drinks from a son up to and when he wakes up he starts over again. His last drink was this morning. Over the last 2 to 3 days he also notes increased depression and thoughts of wanting to harm himself. He denies any homicidal ideation and also denies any specific plan to carrying out the suicide thoughts. He admits to prior history of depression in the past and previously had been treated with Prozac and Vistaril. He feels these medications has made his depression worse. He does not see a PCP or outpatient psychiatry or counselor on a regular basis. He states this is what yudith does for his job and his job has become more stressful. When asked about an inciting event that brought about his relapse he states increased responsibilities at work as well as personal relationships. Continues to smoke a pack of cigarettes a day. He also used marijuana approximately 24 to 36 hours ago but does not use this on a regular basis. He denies any family history of substance abuse or mental health disorders. He states, "I'm the black sheep in the family." He otherwise denies any recent illness, fever, chills, sweats, lightheadedness, dizziness, chest pain, shortness of breath, cough, nausea, vomit, abdominal pain, changes bowel or urinary habits. He does have prior history of alcohol pancreatitis as well as delirium tremens. He denies any seizure-like activity with withdrawal. He states its been many years since he went through withdrawal and is anxious. Discharge Data Allergies Allergy/AdvReac Type Severity Reaction Status Date / Time No Known Allergies Allergy Verified 12/19/21 13:34 Consultations 12/19/21 14:44 ED Decision to Admit Stat 12/19/21 15:14 Consult Psychiatry Routine Hospital Course (1) Alcoholic intoxication: (2) Suicidal ideations: (3) Tobacco abuse: (4) Depression: 41-year-old male who has significant past medical history of alcohol abuse, tobacco abuse, marijuana use and depression who presents to ED requesting detoxification request x1 day. Patient previously has prior history of alcohol abuse and has been sober for 6 years. He states he relapsed approximately 2 to 3 weeks ago. His last drink was a.m. of admission. Alcohol abuse/intoxication hx of DTs admit to pcu pt presents to detox request, in setting of hx of DT will admit Gabapentin taper, IV ativan prn daily thiamine, folic acid continue IVF for now awss per protocol Depression Suicidal ideations consult psych 1:1, safe tray, suicide precautions pt denies active plan or homicidal ideations Tobacco abuse nicotine patch encourage cessation DVT ppx: none, ambulate Dispo: PCU, pt denies rehab stating it interferes with prior obligations, strongly encourage pt to attend rehab given relapse PCP: None, pt agrees to establish with PCP FULL CODE Pt was seen and examined in collaboration with Dr. Michael, please see addendum Discharge Plan Discharge Items Patient Disposition: Home - Self-Care Reason For Visit: ALCOHOL ABUSE Discharge Diagnosis: (1) Alcoholic intoxication: (2) Adjustment disorder with mixed emotional features:: (3) Tobacco abuse: (4) Depression: Activity: Resume your previous activity Non-emergency contact: Primary Care Provider and Psychiatrist Call non-emergency contact if: you have any medication questions Follow-up/Referrals: PCP,NO [Primary Care Provider] - Diet: Regular Addtl Attending Provider Instructions: Follow up with your primary care provider within 1 week Follow up with psychiatry on 12/27 @ 10:30 AM Advised to seek for help for alcohol treatment inpatient or outpatient therapy Counseling on alcohol cessation Counseling on tobacco cessation Seek urgent medical attention if you develop any symptoms of alcohol withdrawal Check Liver enzymes in 1-2 weeks to monitor liver enzymes Please do not drive or operate any machine after taking the Librium Do not take any opioid while on Naltrexone due to risk of opioid overdose Addtl [employer] Provider Instructions: Psychiatry: [facility] scheduled for 12/27 at 10:30am with therapist Ketan, please call to reschedule if this time won't work for you at [phone] Pending Studies at Discharge: No Stand-Alone Forms: [employer], Smoking Cessation Medications and DC Order Prescriptions: New chlordiazepoxide HCl 10 mg Capsule 10 mg PO UD Qty: 6 RF: 0 naltrexone 50 mg Tablet 25 mg PO UD Qty: 20 RF: 0 folic acid 1 mg Tablet 1 mg PO QAM Qty: 30 RF: 0 thiamine HCl (vitamin B1) 100 mg Tablet 100 mg PO QAM Qty: 30 RF: 0 Discharge Orders: Discharge Order (Routine); Ordered 12/20/21 Ordered By: Garett Cruz Admission Data Admit Date/Time: 12/19/21 14:43 Attending Provider: Garett Cruz Admit Provider: Arnulfo Michael Primary Care Provider: PCP,NO Other Providers: Carole Borrego ; Natalie Verde ; Kinga Tenorio ; Arnulfo Michael
[2021-12-21] MEDS ORDERED: GABAPENTIN 600 MG TAB PO SCH (14:45)
[2021-12-21] MEDS ORDERED: GABAPENTIN 600MG Q12H DOSE PO SCH (18:00)
[2021-12-23] MEDS ORDERED: GABAPENTIN 600 MG TAB PO SCH (02:45)
[2021-12-23] MEDS ORDERED: GABAPENTIN 600MG X1 DOSE PO SCH (06:00)
== END 2021-12-20 17:59 | disposition home or self-care (01) | DRG 897 ==
LOC: ED 11:28 → SUATTDRO 14:43 → 2E 14:43

== ENCOUNTER 2022-02-24 11:55 | Inpatient (IN) ==
[2022-02-24] MEDS ORDERED: MULTI-VITAMIN INFUSION 10 ML, THIAMINE HCL 100 MG, FOLIC ACID 1 MG in SODIUM CHLORIDE 0... IV ONE ×2 (12:09→16:00)
[2022-02-24 12:21] LABS: Basophils # (auto) 0.04 K/uL (0-0.2); Basophils % (auto) 0.4 %; Hematocrit (blood only) 45.5 % (40.1-51.0); Hemoglobin 16.3 g/dl (14.0-18.0); Immature Granulocytes # (auto) 0.04 K/uL (0.00-0.02); Immature Granulocytes % (auto) 0.4 %; Lymphocytes # (auto) 1.64 K/uL (1.2-3.4); Lymphocytes % (auto) 15.7 %; Mean Corpuscular Hemoglobin 33.1 pg (25.0-34.0); Mean Corpuscular Hgb Conc 35.8 g/dL (32.0-36.0); Mean Corpuscular Volume 92.5 fL (80.0-100.0); Mean Platelet Volume 10.2 fL (9.4-12.4); Monocytes # (auto) 0.74 K/uL (0.24-0.82); Monocytes % (auto) 7.1 %; Neutrophils # (auto) 7.97 K/uL (1.4-6.5); Neutrophils % (auto) 76.4 %; Platelet Count 117 K/uL (130-400); RDW Coefficient of Variation 11.9 % (11.5-14.5); RDW Standard Deviation 41.1 fL (36.4-46.3); Red Blood Count 4.92 M/uL (4.63-6.08); White Blood Count 10.43 K/ul (4.8-10.8)
[2022-02-24 12:42] LABS: Acetaminophen < 3 ug/ml (10-30); Salicylate < 3.0 mg/dl (3.0-30)
[2022-02-24 12:45] LABS: Alanine Aminotransferase 27 U/L (7-52); Albumin Globulin Ratio 1.3 (0.9-2); Albumin Level 3.9 gm/dl (3.4-5.0); Alkaline Phosphatase 53 U/L (34-104); Anion Gap 17 (3-11); Aspartate Aminotransferase 54 U/L (13-39); BUN Creatinine Ratio 20.7 (10-20); Bilirubin,Total 1.1 mg/dl (0.2-1.0); Blood Urea Nitrogen 18 mg/dl (6-23); Calcium 8.6 mg/dl (8.5-10.1); Carbon Dioxide 25 mmol/L (21-32); Chloride 92 mmol/L (98-107); Est GFR (African American) 125.1 ml/min; Globulin 2.9 gm/dl (2.5-4.0); Glucose 106 mg/dl (70-99(Fasting)); Lipase 110 U/L (11-82); Magnesium 1.8 mg/dl (1.7-2.4); Potassium 4.2 mmol/L (3.5-5.1); Sodium 134 mmol/L (136-145); Total Protein 6.8 gm/dl (6.0-8.3)
--- NOTE | 2022-02-24 13:25 | Emergency Department Note ---
Impression & Plan Alcoholic intoxication, Alcohol withdrawal syndrome ED Provider Note Provider: Kobe Menard MD DATE OF SERVICE: 02/24/2022 CHIEF COMPLAINT: Alcohol withdrawal concern HISTORY OF PRESENT ILLNESS: Patient is a 42-year-old gentleman history of alcohol abuse and prior hallucinations from withdrawal presenting here today reporting all the wagon least for the last week has been drinking heavily. Patient states he feels quite nauseous. Patient states he wants help to stop drinking. Patient states has been in rehab before and is not sure that he wants to do that again. Patient denies a history of withdrawal seizure but states he had bad withdrawal before including hallucinations. Patient states he was here several months ago and did well with a brief stay and then some medication to control his withdrawal symptoms. Patient denies any trauma. Denies headache or abdominal pain to me. Patient states his last drink was around 9:00 this morning. REVIEW OF SYSTEMS: A total of 10 review of systems was obtained and negative except as stated above in the HPI. PAST MEDICAL HISTORY: As noted above MEDICATIONS: Denies current home medications. SOCIAL HISTORY: Reports cigarette and occasional marijuana use. Denies other drug use. Over the last week significant alcohol use PHYSICAL EXAM: GENERAL: alert and oriented in no acute distress on stretcher fatigued appearing and smells of alcohol Head: normocephalic and atraumatic EYES: No injection, discharge or icterus. PERRL NECK: Trachea midline. Supple. ENT: Mucous membranes pink and somewhat dry LUNGS: Airway patent. No retractions. Breath sounds clear with good air entry bilaterally. HEART: Regular rate and rhythm. No chest wall tenderness ABDOMEN: Soft and non-tender, without guarding or rebound. SKIN: Acyanotic, warm, dry, without rashes EXTREMITIES: Without swelling, tenderness or deformity NEUROLOGICAL: No focal deficits. No aphasia. No facial droop with minimal slurred speech. EK bpm sinus tachycardia. No PVC or PAC. No acute ST segment elevation or depression with a QTC of 460. CONTINUOUS CARDIAC MONITORING: was ordered and showed a heart rate of 90s-100s bpm in normal sinus rhythm to sinus tachycardia Patient's laboratory studies and imaging reviewed. Differential includes Alcohol intoxication, toxicologic, infection, hypoglycemia, electrolyte abnormalities, cardiac sources, intracerebral event, neurologic, trauma, as well as other pathologies. IMPRESSION/MEDICAL DECISION MAKING: Patient with history of alcohol abuse now here after a period of binge drinking over approximately the past week or so. Not able to keep much down the last day or so due to significant vomiting. Patient denies any SI or HI to me. No history of significant evidence of trauma. Blood work without significant anemia or leukocytosis I doubt this is infectious. COVID-negative. Hyponatremia. Given a banana bag here as well as oral fluids. He declined any nausea or stomach medication such as Pepcid. Labs without severe abnormality though is intoxicated. Later a bit more hypertensive and may be the tremulous and given a bit of oral Ativan. Later excepting of some Zofran. Given history of significant withdrawal hallucinations discussed with him possibly staying here for observation. He was in agreement with this and wished for this. Discussed with the hospitalist. DIAGNOSIS: Alcohol intoxication, alcohol withdrawal DISPOSITION: Hospitalist will evaluate Patient was agreeable with this plan. Past Med/Surg History Medical History Chronic alcohol use Depression Tobacco use Surgical History H/O inguinal hernia repair Family History Denies family history of Depression Heart disease Hypertension Stroke Social History Smoking Status: Current every day smoker packs per day: 1; Years Smoked: 15; Cigarettes Per Day: 20; Hx Alcohol Use: Yes Alcohol type: beer Alcohol Intake Frequency: 4 or More x per/Week Alcohol Intake Frequency Comment: daily, 5-6 heavy alcohol content 24oz beers Hx Substance Use: Yes Non-Prescribed Medications: Marijuana Last Used Substance: Just Prior to Arrival Preferred Language: Japanese Beliefs That Will Affect Care: None Current Living Situation: Alone current occupational status: employed Feels Safe at Home: Yes Assistive Devices: None Allergies Allergies Allergy/AdvReac Type Severity Reaction Status Date / Time No Known Allergies Allergy Verified 02/24/22 15:23 Home Meds Home Medications Medication Instructions Recorded Confirmed No Known Home Medications 02/24/22 02/24/22 Results & Data (ED) Vital Signs Vital Signs - 24 hr 02/24/22 12:19 02/24/22 12:17 02/24/22 14:43 Temperature 37.0 C Temperature Source Oral Pulse Rate 100 H Pulse Rate [Radial] 93 H 90 Pulse Rhythm [Radial] Regular Pulse Strength [Radial] Normal Respiratory Rate 20 18 17 Respiratory Effort / Characteristics Non-Labored Non-Labored Respiratory Depth Normal Normal Respiratory Pattern Regular Regular Blood Pressure 121/75 Blood Pressure [Left Arm] 121/75 124/68 Blood Pressure Mean 90 Blood Pressure Mean [Left Arm] 90 86 Blood Pressure Position [Left Arm] Lying Lying Pulse Oximetry 93 93 95 Oxygen Delivery Method Room Air Room Air Room Air Sepsis Recent Fever Within 48 Hours No Sepsis New/Unexplained Change in Mental Status No Sepsis Action Taken by Nursing No Action Required Laboratory Data Result diagrams: 02/24/22 12:09 02/24/22 12:09 Lab Results 02/24/22 02/24/22 02/24/22 Range/Units 12:09 12:09 12:09 WBC 10.43 (4.8-10.8) K/ul RBC 4.92 (4.63-6.08) M/uL Hgb 16.3 (14.0-18.0) g/dl Hct 45.5 (40.1-51.0) % MCV 92.5 (80.0-100.0) fL MCH 33.1 (25.0-34.0) pg MCHC 35.8 (32.0-36.0) g/dL RDW Std Deviation 41.1 (36.4-46.3) fL RDW Coeff of Ivy 11.9 (11.5-14.5) % Plt Count 117 L (130-400) K/uL MPV 10.2 (9.4-12.4) fL Immature Gran % (Auto) 0.4 % Neut % (Auto) 76.4 % Lymph % (Auto) 15.7 % [place] % (Auto) 7.1 % Eos % (Auto) 0.0 % Baso % (Auto) 0.4 % Neut # (Auto) 7.97 H (1.4-6.5) K/uL Lymph # (Auto) 1.64 (1.2-3.4) K/uL [place] # (Auto) 0.74 (0.24-0.82) K/uL Eos # (Auto) 0.00 (0-0.50) K/uL Baso # (Auto) 0.04 (0-0.2) K/uL Immature Gran # (Auto) 0.04 H (0.00-0.02) K/uL Sodium 134 L (136-145) mmol/L Potassium 4.2 (3.5-5.1) mmol/L Chloride 92 L (98-107) mmol/L Carbon Dioxide 25 (21-32) mmol/L Anion Gap 17 H (3-11) BUN 18 (6-23) mg/dl Creatinine 0.87 (0.6-1.4) mg/dl Est Cr Clr Drug Dosing Not Reportable Est GFR ( Amer) 125.1 ml/min Est GFR (Non-Af Amer) 108.0 ml/min BUN/Creatinine Ratio 20.7 H (10-20) Glucose 106 H (70-99(Fasting)) mg/dl Calcium 8.6 (8.5-10.1) mg/dl Magnesium 1.8 (1.7-2.4) mg/dl Total Bilirubin 1.1 H (0.2-1.0) mg/dl AST 54 H (13-39) U/L ALT 27 (7-52) U/L Alkaline Phosphatase 53 (34-104) U/L Total Protein 6.8 (6.0-8.3) gm/dl Albumin 3.9 (3.4-5.0) gm/dl Globulin 2.9 (2.5-4.0) gm/dl Albumin/Globulin Ratio 1.3 (0.9-2) Lipase 110 H (11-82) U/L TSH 0.675 (0.300-4.500) uIu/ml Salicylates (3.0-30) mg/dl Acetaminophen (10-30) ug/ml Ethyl Alcohol mg/dL (<10.0) mg/dl SARS-CoV-2, RNA, NAAT (NEGATIVE) 02/24/22 02/24/22 02/24/22 Range/Units 12:09 12:09 12:35 WBC (4.8-10.8) K/ul RBC (4.63-6.08) M/uL Hgb (14.0-18.0) g/dl Hct (40.1-51.0) % MCV (80.0-100.0) fL MCH (25.0-34.0) pg MCHC (32.0-36.0) g/dL RDW Std Deviation (36.4-46.3) fL RDW Coeff of Ivy (11.5-14.5) % Plt Count (130-400) K/uL MPV (9.4-12.4) fL Immature Gran % (Auto) % Neut % (Auto) % Lymph % (Auto) % [place] % (Auto) % Eos % (Auto) % Baso % (Auto) % Neut # (Auto) (1.4-6.5) K/uL Lymph # (Auto) (1.2-3.4) K/uL [place] # (Auto) (0.24-0.82) K/uL Eos # (Auto) (0-0.50) K/uL Baso # (Auto) (0-0.2) K/uL Immature Gran # (Auto) (0.00-0.02) K/uL Sodium (136-145) mmol/L Potassium (3.5-5.1) mmol/L Chloride (98-107) mmol/L Carbon Dioxide (21-32) mmol/L Anion Gap (3-11) BUN (6-23) mg/dl Creatinine (0.6-1.4) mg/dl Est Cr Clr Drug Dosing Est GFR ( Amer) ml/min Est GFR (Non-Af Amer) ml/min BUN/Creatinine Ratio (10-20) Glucose (70-99(Fasting)) mg/dl Calcium (8.5-10.1) mg/dl Magnesium (1.7-2.4) mg/dl Total Bilirubin (0.2-1.0) mg/dl AST (13-39) U/L ALT (7-52) U/L Alkaline Phosphatase (34-104) U/L Total Protein (6.0-8.3) gm/dl Albumin (3.4-5.0) gm/dl Globulin (2.5-4.0) gm/dl Albumin/Globulin Ratio (0.9-2) Lipase (11-82) U/L TSH (0.300-4.500) uIu/ml Salicylates < 3.0 L (3.0-30) mg/dl Acetaminophen < 3 L (10-30) ug/ml Ethyl Alcohol mg/dL 215.4 H (<10.0) mg/dl SARS-CoV-2, RNA, NAAT NEGATIVE (NEGATIVE) Administered Medications Discontinued Medications Multivitamins 10 ml/ Thiamine HCl 100 mg/ Folic Acid 1 mg/Sodium Chloride 1,011.2 mls @ 1,011.2 mls/hr IV .Q1H ONE Stop: 02/24/22 13:08 Last Infusion: 02/24/22 14:45 Dose: 0 mls/hr Documented By: Admin: 02/24/22 12:41 Dose: 1,011.2 mls/hr Documented By: ALFA Lorazepam (Lorazepam 1 Mg Tab) 2 mg PO NOW STA Stop: 02/24/22 13:35 Last Admin: 02/24/22 13:44 Dose: 2 mg Documented By: ALFA Ondansetron HCl (Ondansetron Inj 2 Mg/Ml 2 Ml Vial) 4 mg IV NOW STA Stop: 02/24/22 13:35 Last Admin: 02/24/22 13:44 Dose: 4 mg Documented By: ALFA Discharge Plan Visit Data Chief Complaint: Alcohol Withdrawal Stated Complaint: ALCOHOL WITHDRAWL SX ED Provider: Kobe Menard Discharge Problem: Alcoholic intoxication, Alcohol withdrawal syndrome Patient Disposition: Being Evaluated by Hospitalist Forms Stand Alone Forms: [facility], Suicide Prevention Resources Prescriptions Prescriptions: No Action No Known Home Medications Referrals Referrals: PCP,NO [Primary Care Provider] -
[2022-02-24] MEDS ORDERED: LORazepam 1 MG TAB PO STA (13:34)
[2022-02-24] MEDS ORDERED: ONDANSETRON INJ 2 MG/ML 2 ML VIAL IV STA (13:34)
[2022-02-24] MEDS ORDERED: GABAPENTIN 1200MG ALCOHOL WITHDRAWAL LOAD PO STA (15:41)
[2022-02-24] MEDS ORDERED: GABAPENTIN 600 MG TAB PO ONE ×2 (15:41→16:45)
[2022-02-24] MEDS ORDERED: LORazepam 1 MG in SYRINGE 0.5 ML IV PRN (15:41)
--- NOTE | 2022-02-24 15:41 | History & Physical Report ---
Date of Service February 24, 2022 Assessment & Plan (1) Alcoholic intoxication: Plan: Known alcoholic and has been drinking heavily for the last 1 week Complaining of hallucination with eyes closed with unsteadiness in gait and general weakness Will be admitted to medical telemetry unit and monitor for withdrawal symptoms (2) Alcohol withdrawal syndrome: Plan: We will put him alcohol withdrawal protocol Check electrolytes and replace as needed Has had prior inpatient rehab but the patient does not want to go to inpatient this time (3) Alcohol abuse: Plan: Continues to use alcohol and has been trying to quit (4) Depression: Plan: Does not take any medications (5) Tobacco use: Plan: Smoke cessation We will put him on nicotine patch DVT prophylaxis SCDs for now CODE STATUS Full History of Present Illness Chief Complaint: Weakness, shaky with tremors Primary Care Provider: NO PCP Is a 42-year-old male with significant past medical history of alcohol abuse with recurrent withdrawal symptoms, tobacco abuse, marijuana abuse and depressio n apparently came to ER with increasing weakness, shakiness and tremors involving the outstretched hands. He also complains to have hallucination especially when he closes eyes. Denies any palpitation , chest pain or shortness of breath. Minimal abdominal discomfort without any nausea and or vomiting. He has been drinking heavily for the last 1 week and the last drink was this morning. Allergies Allergy/AdvReac Type Severity Reaction Status Date / Time No Known Allergies Allergy Verified 02/24/22 15:23 Home Medications Medication Instructions Recorded Confirmed Type No Known Home Medications 02/24/22 02/24/22 History Past Med/Surg History Medical History Alcoholic intoxication Chronic alcohol use Tobacco use Surgical History H/O inguinal hernia repair Family History Denies family history of Depression Heart disease Hypertension Stroke Social History Smoking Status: Current every day smoker packs per day: 1; Years Smoked: 15; Cigarettes Per Day: 20; Hx Alcohol Use: Yes Alcohol type: beer Alcohol Intake Frequency: 4 or More x per/Week Alcohol Intake Frequency Comment: daily, 5-6 heavy alcohol content 24oz beers Hx Substance Use: Yes Non-Prescribed Medications: Marijuana Last Used Substance: Just Prior to Arrival Preferred Language: Tajik Beliefs That Will Affect Care: None Current Living Situation: Alone current occupational status: employed Feels Safe at Home: Yes Assistive Devices: None Review of Systems 2 Review of Systems: All systems reviewed and are unremarkable except as noted below Neurologic: Unsteady gait, tremors and hallucinations with eyes closed Physical Exam Physical Exam: Lying in bed without any apparent distress but looks depressed Constitutional: + ill appearing and + thin Eyes: PERRL, conjunctivae normal, anicteric sclerae ENMT: external ear and nose normal, oropharynx normal Neck: trachea midline, no thyromegaly Respiratory: no respiratory distress Auscultation: lungs clear to auscultation bilaterally Cardiovascular: Rate/Rhythm: regular rate and regular rhythm; not tachycardic Heart Sounds: normal S1 and normal S2; no murmur Extremities: no edema Gastrointestinal (Abdomen): Inspection/Auscultation: normal bowel sounds; abdomen not distended Percussion/Palpation: + abdomen tender (Minimally tender in the epigastric) and abdomen soft Musculoskeletal: No acute arthritis in any joint Neurologic: Alert, awake and oriented x3. Moving all limbs equally. Mild to moderate tremors involving the outstretched hands Lymphatic: no cervical or axillary lymphadenopathy Results & Data Results & Data ([facility]) Vital Signs (Past 12 Hours) Vital Signs Temp Pulse Pulse Resp BP BP Pulse Ox 02/24/22 14:43 90 17 124/68 95 02/24/22 12:17 93 H 18 121/75 93 02/24/22 12:19 37.0 C 100 H 20 121/75 93 O2 Del Method 02/24/22 14:43 Room Air 02/24/22 12:17 Room Air 02/24/22 12:19 Room Air Laboratory Results Short CBC 02/24/22 Range/Units 12:09 WBC 10.43 (4.8-10.8) K/ul Hgb 16.3 (14.0-18.0) g/dl Hct 45.5 (40.1-51.0) % Plt Count 117 L (130-400) K/uL BMP 02/24/22 12:09 Sodium 134 L Potassium 4.2 Chloride 92 L Carbon Dioxide 25 BUN 18 Creatinine 0.87 Glucose 106 H Calcium 8.6 Liver Function 02/24/22 Range/Units 12:09 Total Bilirubin 1.1 H (0.2-1.0) mg/dl AST 54 H (13-39) U/L ALT 27 (7-52) U/L Alkaline Phosphatase 53 (34-104) U/L Albumin 3.9 (3.4-5.0) gm/dl Code Status & VTE Plan VTE Prophylaxis Plan VTE Prophylaxis will be ordered: Yes
[2022-02-24] MEDS ORDERED: ONDANSETRON INJ 2 MG/ML 2 ML VIAL IV PRN (15:46)
[2022-02-24] MEDS: FOLIC ACID 1 MG in SYRINGE 9.8 ML IV SCH (16:27)
[2022-02-24] MEDS: THIAMINE HCL 100 MG in SYRINGE 9 ML IV SCH (16:27)
[2022-02-24 17:02] LABS: Appearance Urine Clear (Clear); Bacteria Urine Automated Negative (Negative); Bilirubin Urine Negative (Negative); Blood Urine Negative (Negative); Color Urine Dark Yellow; Glucose Urine UA Negative (Negative); Ketones Urine 1+ (Negative); Leukocyte Esterase Urine Negative (Negative); Nitrite Urine Negative (Negative); Protein Urine 1+ (Negative); Specific Gravity Urine 1.026 (1.000-1.030); Urobilinogen Urine Negative (Negative); pH Urine 5.5 (4.5-7.5)
[2022-02-24 17:38] LABS: Amphetamines+Metham, Urine Neg (Neg); Barbiturates, Urine Neg (Neg); Benzodiazepine, Urine Neg (Neg); Cocaine, Urine Neg (Neg); MDMA (Ecstacy), Urine Neg (Neg); Methadone, Urine Neg (Neg); Opiate, Urine Neg (Neg); Phencyclidine, Urine Neg (Neg)
[2022-02-24] MEDS: GABAPENTIN 600 MG TAB PO SCH (23:23)
[2022-02-25] MEDS: GABAPENTIN 600 MG TAB PO SCH (05:01)
[2022-02-25 06:41] LABS: Albumin Globulin Ratio 1.5 (0.9-2); Albumin Level 3.2 gm/dl (3.4-5.0); BUN Creatinine Ratio 20.2 (10-20); Bilirubin,Total 2.2 mg/dl (0.2-1.0); Calcium 7.9 mg/dl (8.5-10.1); Creatinine Clr Calc Pharmacy 107.5 ml/min; Est GFR (African American) 126.9 ml/min; Est GFR (Non-African American) 109.5 ml/min; Globulin 2.2 gm/dl (2.5-4.0); Magnesium 1.8 mg/dl (1.7-2.4); Phosphorus 2.8 mg/dl (2.5-4.9); Potassium 3.9 mmol/L (3.5-5.1); Total Protein 5.4 gm/dl (6.0-8.3)
[2022-02-25 06:46] LABS: Basophils # (auto) 0.03 K/uL (0-0.2); Basophils % (auto) 0.4 %; Eosinophils # (auto) 0.04 K/uL (0-0.50); Eosinophils % (auto) 0.5 %; Hematocrit (blood only) 38.6 % (40.1-51.0); Hemoglobin 13.3 g/dl (14.0-18.0); Immature Granulocytes # (auto) 0.02 K/uL (0.00-0.02); Immature Granulocytes % (auto) 0.2 %; Lymphocytes # (auto) 1.25 K/uL (1.2-3.4); Lymphocytes % (auto) 14.9 %; Mean Corpuscular Hgb Conc 34.5 g/dL (32.0-36.0); Mean Corpuscular Volume 95.8 fL (80.0-100.0); Mean Platelet Volume 10.1 fL (9.4-12.4); Monocytes # (auto) 0.69 K/uL (0.24-0.82); Monocytes % (auto) 8.2 %; Neutrophils # (auto) 6.38 K/uL (1.4-6.5); Neutrophils % (auto) 75.8 %; Platelet Count 84 K/uL (130-400); RDW Coefficient of Variation 11.8 % (11.5-14.5); RDW Standard Deviation 41.2 fL (36.4-46.3); Red Blood Count 4.03 M/uL (4.63-6.08); White Blood Count 8.41 K/ul (4.8-10.8)
[2022-02-25] MEDS: FOLIC ACID 1 MG in SYRINGE 9.8 ML IV SCH (07:20)
[2022-02-25] MEDS: THIAMINE HCL 100 MG in SYRINGE 9 ML IV SCH (07:21)
--- NOTE | 2022-02-25 11:13 | Hospitalist Progress Note ---
Date of Service February 25, 2022 Assessment & Plan (1) Alcohol abuse: Plan: Continued to use alcohol and has been trying to quit (2) Alcoholic intoxication: Plan: Last admission, in December, very short known alcoholic and has been drinking heavily for the past few days Previously 5 years sober, he is hoping for being sober for a very long time again He was worried that he could have some withdrawal symptoms, however he feels well today Reports that he has to do outpatient rehab, per his employer He is dedicated to abstinence, also reports good support at home He is eager for discharge Currently does not have any withdrawal symptoms, did not use any as needed Ativan He took gabapentin here, however he does not wish to continue that at home (3) Alcohol withdrawal syndrome: Plan: alcohol withdrawal protocol, as above Check electrolytes and replace as needed Has had prior inpatient rehab but the patient does not want to go to inpatient this time Plans for outpatient rehab, as above (4) Depression: Plan: Does not take any medications (5) Tobacco use: Plan: Smoke cessation nicotine patch DVT prophylaxis SCDs for now CODE STATUS Full Admission and Anticipated Discharge Date Admission Date: February 24, 2022 Subjective Patient seen in follow-up of alcohol abuse Patient admitted yesterday, as he was having nausea, and was worried he may have some issues with withdrawal He is sitting up in bed, in no acute distress Denies any tremors or hallucinations Nausea has resolved and he is able to eat He is eager for discharge, reports that he will do outpatient rehab, as this is required by his employer Denies any fevers, chills, chest pain, shortness of breath, palpitations He has been ambulating without difficulty Reports good support system at home Review of Systems Review of Systems: All systems reviewed & are unremarkable except as noted in Subjective Physical Exam Physical Exam: Physical Exam: Constitutional:L young M, sitting u p in bed in NAD Eyes: PERRL, EOMI, conju nctivae normal, an icteric sclerae ENMT: external ear and n ose normal, oropha rynx normal Neck: supple Respiratory: no respiratory dis tress Auscultatio n: lungs clear to auscultation bilat erally Cardiovascular:L Rate/Rhythm: regul ar rate and regula r rhythm; not tach ycardic Heart Bernie nds: normal S1 and normal S2; no mur mur Extremities: no edema Gastrointestinal ( Abdomen): normal bowel sound s; abdomen not dis tended, soft Musculoskeletal: moves extremities Neurologic: Alert, awake and o riented x3. Answe rs appropriately, speech fluent, no facial asymmetry, moves extremities, no tremor noted Results & Data Results & Data ([facility]) Vital Signs (Past 12 Hours) Vital Signs Temp Pulse Pulse Resp BP Pulse Ox O2 Del Method 02/25/22 08:42 36.9 C 65 17 126/68 96 Room Air 02/25/22 07:42 68 02/25/22 03:06 37.3 C 79 16 129/75 95 Room Air Laboratory Results 02/25/22 02/25/22 02/24/22 Range/Units 05:50 05:50 15:56 WBC 8.41 (4.8-10.8) K/ul RBC 4.03 L (4.63-6.08) M/uL Hgb 13.3 L D (14.0-18.0) g/dl Hct 38.6 L (40.1-51.0) % MCV 95.8 (80.0-100.0) fL MCH 33.0 (25.0-34.0) pg MCHC 34.5 (32.0-36.0) g/dL RDW Std Deviation 41.2 (36.4-46.3) fL RDW Coeff of Ivy 11.8 (11.5-14.5) % Plt Count 84 L (130-400) K/uL MPV 10.1 (9.4-12.4) fL Immature Gran % (Auto) 0.2 % Neut % (Auto) 75.8 % Lymph % (Auto) 14.9 % Harrison % (Auto) 8.2 % Eos % (Auto) 0.5 % Baso % (Auto) 0.4 % Neut # (Auto) 6.38 (1.4-6.5) K/uL Lymph # (Auto) 1.25 (1.2-3.4) K/uL Harrison # (Auto) 0.69 (0.24-0.82) K/uL Eos # (Auto) 0.04 (0-0.50) K/uL Baso # (Auto) 0.03 (0-0.2) K/uL Immature Gran # (Auto) 0.02 (0.00-0.02) K/uL Sodium 136 (136-145) mmol/L Potassium 3.9 (3.5-5.1) mmol/L Chloride 99 (98-107) mmol/L Carbon Dioxide 32 (21-32) mmol/L Anion Gap 5 (3-11) BUN 17 (6-23) mg/dl Creatinine 0.84 (0.6-1.4) mg/dl Est Cr Clr Drug Dosing 107.5 Est GFR ( Amer) 126.9 ml/min Est GFR (Non-Af Amer) 109.5 ml/min BUN/Creatinine Ratio 20.2 H (10-20) Glucose 100 H (70-99(Fasting)) mg/dl Calcium 7.9 L (8.5-10.1) mg/dl Phosphorus 2.8 (2.5-4.9) mg/dl Magnesium 1.8 (1.7-2.4) mg/dl Total Bilirubin 2.2 H D (0.2-1.0) mg/dl AST 53 H (13-39) U/L ALT 22 (7-52) U/L Alkaline Phosphatase 40 (34-104) U/L Total Protein 5.4 L D (6.0-8.3) gm/dl Albumin 3.2 L (3.4-5.0) gm/dl Globulin 2.2 L (2.5-4.0) gm/dl Albumin/Globulin Ratio 1.5 (0.9-2) Lipase (11-82) U/L TSH (0.300-4.500) uIu/ml Urine Color Urine Appearance (Clear) Urine pH (4.5-7.5) Ur Specific [place] (1.000-1.030) Urine Protein (Negative) Urine Glucose (UA) (Negative) Urine Ketones (Negative) Urine Blood (Negative) Urine Nitrite (Negative) Urine Bilirubin (Negative) Urine Urobilinogen (Negative) Ur Leukocyte Esterase (Negative) Urine WBC (Auto) (0-5) /hpf Urine RBC (Auto) (0-4) /hpf U Hyaline Cast (Auto) (0-5) /lpf U Epithel Cells (Auto) (0-5) /lpf Urine Bacteria (Auto) (Negative) Salicylates (3.0-30) mg/dl Urine Opiates Screen (Neg) Ur Methadone, Qual (Neg) Acetaminophen (10-30) ug/ml Urine Barbiturates (Neg) Ur Phencyclidine (PCP) (Neg) U Amphetamin/Meth Scrn (Neg) MDMA (Ecstasy) Screen (Neg) U Benzodiazepines Scrn (Neg) Ur Cocaine Metabolite (Neg) U Marijuana (THC) Screen (Neg) U Marijuana THC Carboxy Pending Drug Screen Comment Pending Ethyl Alcohol mg/dL (<10.0) mg/dl SARS-CoV-2, RNA, NAAT (NEGATIVE) 02/24/22 02/24/22 02/24/22 Range/Units 15:56 15:56 12:35 WBC (4.8-10.8) K/ul RBC (4.63-6.08) M/uL Hgb (14.0-18.0) g/dl Hct (40.1-51.0) % MCV (80.0-100.0) fL MCH (25.0-34.0) pg MCHC (32.0-36.0) g/dL RDW Std Deviation (36.4-46.3) fL RDW Coeff of Ivy (11.5-14.5) % Plt Count (130-400) K/uL MPV (9.4-12.4) fL Immature Gran % (Auto) % Neut % (Auto) % Lymph % (Auto) % Harrison % (Auto) % Eos % (Auto) % Baso % (Auto) % Neut # (Auto) (1.4-6.5) K/uL Lymph # (Auto) (1.2-3.4) K/uL Harrison # (Auto) (0.24-0.82) K/uL Eos # (Auto) (0-0.50) K/uL Baso # (Auto) (0-0.2) K/uL Immature Gran # (Auto) (0.00-0.02) K/uL Sodium (136-145) mmol/L Potassium (3.5-5.1) mmol/L Chloride (98-107) mmol/L Carbon Dioxide (21-32) mmol/L Anion Gap (3-11) BUN (6-23) mg/dl Creatinine (0.6-1.4) mg/dl Est Cr Clr Drug Dosing Est GFR ( Amer) ml/min Est GFR (Non-Af Amer) ml/min BUN/Creatinine Ratio (10-20) Glucose (70-99(Fasting)) mg/dl Calcium (8.5-10.1) mg/dl Phosphorus (2.5-4.9) mg/dl Magnesium (1.7-2.4) mg/dl Total Bilirubin (0.2-1.0) mg/dl AST (13-39) U/L ALT (7-52) U/L Alkaline Phosphatase (34-104) U/L Total Protein (6.0-8.3) gm/dl Albumin (3.4-5.0) gm/dl Globulin (2.5-4.0) gm/dl Albumin/Globulin Ratio (0.9-2) Lipase (11-82) U/L TSH (0.300-4.500) uIu/ml Urine Color Dark Yellow Urine Appearance Clear (Clear) Urine pH 5.5 (4.5-7.5) Ur Specific [place] 1.026 (1.000-1.030) Urine Protein 1+ H (Negative) Urine Glucose (UA) Negative (Negative) Urine Ketones 1+ H (Negative) Urine Blood Negative (Negative) Urine Nitrite Negative (Negative) Urine Bilirubin Negative (Negative) Urine Urobilinogen Negative (Negative) Ur Leukocyte Esterase Negative (Negative) Urine WBC (Auto) 1-5 (0-5) /hpf Urine RBC (Auto) 5-10 H (0-4) /hpf U Hyaline Cast (Auto) 5-10 H (0-5) /lpf U Epithel Cells (Auto) 10-20 H (0-5) /lpf Urine Bacteria (Auto) Negative (Negative) Salicylates (3.0-30) mg/dl Urine Opiates Screen Neg (Neg) Ur Methadone, Qual Neg (Neg) Acetaminophen (10-30) ug/ml Urine Barbiturates Neg (Neg) Ur Phencyclidine (PCP) Neg (Neg) U Amphetamin/Meth Scrn Neg (Neg) MDMA (Ecstasy) Screen Neg (Neg) U Benzodiazepines Scrn Neg (Neg) Ur Cocaine Metabolite Neg (Neg) U Marijuana (THC) Screen Pos H (Neg) U Marijuana THC Carboxy Drug Screen Comment Ethyl Alcohol mg/dL (<10.0) mg/dl SARS-CoV-2, RNA, NAAT NEGATIVE (NEGATIVE) 02/24/22 02/24/22 02/24/22 Range/Units 12:09 12:09 12:09 WBC (4.8-10.8) K/ul RBC (4.63-6.08) M/uL Hgb (14.0-18.0) g/dl Hct (40.1-51.0) % MCV (80.0-100.0) fL MCH (25.0-34.0) pg MCHC (32.0-36.0) g/dL RDW Std Deviation (36.4-46.3) fL RDW Coeff of Ivy (11.5-14.5) % Plt Count (130-400) K/uL MPV (9.4-12.4) fL Immature Gran % (Auto) % Neut % (Auto) % Lymph % (Auto) % Harrison % (Auto) % Eos % (Auto) % Baso % (Auto) % Neut # (Auto) (1.4-6.5) K/uL Lymph # (Auto) (1.2-3.4) K/uL Harrison # (Auto) (0.24-0.82) K/uL Eos # (Auto) (0-0.50) K/uL Baso # (Auto) (0-0.2) K/uL Immature Gran # (Auto) (0.00-0.02) K/uL Sodium (136-145) mmol/L Potassium (3.5-5.1) mmol/L Chloride (98-107) mmol/L Carbon Dioxide (21-32) mmol/L Anion Gap (3-11) BUN (6-23) mg/dl Creatinine (0.6-1.4) mg/dl Est Cr Clr Drug Dosing Est GFR ( Amer) ml/min Est GFR (Non-Af Amer) ml/min BUN/Creatinine Ratio (10-20) Glucose (70-99(Fasting)) mg/dl Calcium (8.5-10.1) mg/dl Phosphorus 3.7 (2.5-4.9) mg/dl Magnesium (1.7-2.4) mg/dl Total Bilirubin (0.2-1.0) mg/dl AST (13-39) U/L ALT (7-52) U/L Alkaline Phosphatase (34-104) U/L Total Protein (6.0-8.3) gm/dl Albumin (3.4-5.0) gm/dl Globulin (2.5-4.0) gm/dl Albumin/Globulin Ratio (0.9-2) Lipase (11-82) U/L TSH (0.300-4.500) uIu/ml Urine Color Urine Appearance (Clear) Urine pH (4.5-7.5) Ur Specific [place] (1.000-1.030) Urine Protein (Negative) Urine Glucose (UA) (Negative) Urine Ketones (Negative) Urine Blood (Negative) Urine Nitrite (Negative) Urine Bilirubin (Negative) Urine Urobilinogen (Negative) Ur Leukocyte Esterase (Negative) Urine WBC (Auto) (0-5) /hpf Urine RBC (Auto) (0-4) /hpf U Hyaline Cast (Auto) (0-5) /lpf U Epithel Cells (Auto) (0-5) /lpf Urine Bacteria (Auto) (Negative) Salicylates < 3.0 L (3.0-30) mg/dl Urine Opiates Screen (Neg) Ur Methadone, Qual (Neg) Acetaminophen < 3 L (10-30) ug/ml Urine Barbiturates (Neg) Ur Phencyclidine (PCP) (Neg) U Amphetamin/Meth Scrn (Neg) MDMA (Ecstasy) Screen (Neg) U Benzodiazepines Scrn (Neg) Ur Cocaine Metabolite (Neg) U Marijuana (THC) Screen (Neg) U Marijuana THC Carboxy Drug Screen Comment Ethyl Alcohol mg/dL 215.4 H (<10.0) mg/dl SARS-CoV-2, RNA, NAAT (NEGATIVE) 02/24/22 02/24/22 02/24/22 Range/Units 12:09 12:09 12:09 WBC 10.43 (4.8-10.8) K/ul RBC 4.92 (4.63-6.08) M/uL Hgb 16.3 (14.0-18.0) g/dl Hct 45.5 (40.1-51.0) % MCV 92.5 (80.0-100.0) fL MCH 33.1 (25.0-34.0) pg MCHC 35.8 (32.0-36.0) g/dL RDW Std Deviation 41.1 (36.4-46.3) fL RDW Coeff of Ivy 11.9 (11.5-14.5) % Plt Count 117 L (130-400) K/uL MPV 10.2 (9.4-12.4) fL Immature Gran % (Auto) 0.4 % Neut % (Auto) 76.4 % Lymph % (Auto) 15.7 % Harrison % (Auto) 7.1 % Eos % (Auto) 0.0 % Baso % (Auto) 0.4 % Neut # (Auto) 7.97 H (1.4-6.5) K/uL Lymph # (Auto) 1.64 (1.2-3.4) K/uL Harrison # (Auto) 0.74 (0.24-0.82) K/uL Eos # (Auto) 0.00 (0-0.50) K/uL Baso # (Auto) 0.04 (0-0.2) K/uL Immature Gran # (Auto) 0.04 H (0.00-0.02) K/uL Sodium 134 L (136-145) mmol/L Potassium 4.2 (3.5-5.1) mmol/L Chloride 92 L (98-107) mmol/L Carbon Dioxide 25 (21-32) mmol/L Anion Gap 17 H (3-11) BUN 18 (6-23) mg/dl Creatinine 0.87 (0.6-1.4) mg/dl Est Cr Clr Drug Dosing Not Reportable Est GFR ( Amer) 125.1 ml/min Est GFR (Non-Af Amer) 108.0 ml/min BUN/Creatinine Ratio 20.7 H (10-20) Glucose 106 H (70-99(Fasting)) mg/dl Calcium 8.6 (8.5-10.1) mg/dl Phosphorus (2.5-4.9) mg/dl Magnesium 1.8 (1.7-2.4) mg/dl Total Bilirubin 1.1 H (0.2-1.0) mg/dl AST 54 H (13-39) U/L ALT 27 (7-52) U/L Alkaline Phosphatase 53 (34-104) U/L Total Protein 6.8 (6.0-8.3) gm/dl Albumin 3.9 (3.4-5.0) gm/dl Globulin 2.9 (2.5-4.0) gm/dl Albumin/Globulin Ratio 1.3 (0.9-2) Lipase 110 H (11-82) U/L TSH 0.675 (0.300-4.500) uIu/ml Urine Color Urine Appearance (Clear) Urine pH (4.5-7.5) Ur Specific [place] (1.000-1.030) Urine Protein (Negative) Urine Glucose (UA) (Negative) Urine Ketones (Negative) Urine Blood (Negative) Urine Nitrite (Negative) Urine Bilirubin (Negative) Urine Urobilinogen (Negative) Ur Leukocyte Esterase (Negative) Urine WBC (Auto) (0-5) /hpf Urine RBC (Auto) (0-4) /hpf U Hyaline Cast (Auto) (0-5) /lpf U Epithel Cells (Auto) (0-5) /lpf Urine Bacteria (Auto) (Negative) Salicylates (3.0-30) mg/dl Urine Opiates Screen (Neg) Ur Methadone, Qual (Neg) Acetaminophen (10-30) ug/ml Urine Barbiturates (Neg) Ur Phencyclidine (PCP) (Neg) U Amphetamin/Meth Scrn (Neg) MDMA (Ecstasy) Screen (Neg) U Benzodiazepines Scrn (Neg) Ur Cocaine Metabolite (Neg) U Marijuana (THC) Screen (Neg) U Marijuana THC Carboxy Drug Screen Comment Ethyl Alcohol mg/dL (<10.0) mg/dl SARS-CoV-2, RNA, NAAT (NEGATIVE) Medications Administered Current Inpatient Medications Gabapentin (Gabapentin 600 Mg Tab) 600 mg PO Q8H [place] Stop: 02/26/22 06:01 Gabapentin (Gabapentin 600 Mg Tab) 600 mg PO Q12H [place] Stop: 02/27/22 06:01 Gabapentin (Gabapentin 600 Mg Tab) 600 mg PO Q24H [place] Stop: 02/28/22 06:01 Thiamine HCl 100 mg/ Syringe 10 mls @ 2 mls/min IV QAM [place] Stop: 03/26/22 15:59 Last Admin: 02/25/22 07:21 Dose: 2 mls/min Folic Acid 1 mg/ Syringe 10 mls @ 5 mls/min IV QAM [place] Stop: 03/26/22 15:59 Last Admin: 02/25/22 07:20 Dose: 5 mls/min Lorazepam 1 mg/ Syringe 1 mls @ 2 mls/min IV ONE PRN; Protocol PRN Reason: EtoH Withdrawal AWSS 6-10 Stop: 03/26/22 15:40 Ondansetron HCl (Ondansetron Inj 2 Mg/Ml 2 Ml Vial) 4 mg IV Q6H PRN PRN Reason: Nausea And Vomiting Stop: 03/26/22 15:45
--- NOTE | 2022-02-25 11:28 | Electrocardiogram Report ---
Test Reason : Blood Pressure : / mmHG Vent. Rate : 108 BPM Atrial Rate : 108 BPM P-R Int : 124 ms QRS Dur : 088 ms QT Int : 344 ms P-R-T Axes : 063 055 049 degrees QTc Int : 460 ms Sinus tachycardia Otherwise normal ECG When compared with ECG of 19-DEC-2021 12:03, No significant change was found Confirmed by Jimy Irvin ([id number]) on 02/25/2022 11:28:06 AM Referred By: REFERRED SELF Confirmed By:Jimy Irvin
--- NOTE | 2022-02-25 11:43 | Electrocardiogram Report ---
Test Reason : Blood Pressure : / mmHG Vent. Rate : 084 BPM Atrial Rate : 084 BPM P-R Int : 136 ms QRS Dur : 086 ms QT Int : 376 ms P-R-T Axes : 056 065 059 degrees QTc Int : 444 ms Sinus rhythm with marked sinus arrhythmia Otherwise normal ECG When compared with ECG of 24-FEB-2022 12:15, (unconfirmed) No significant change was found Confirmed by Jimy Irvin ([id number]) on 02/25/2022 11:43:43 AM Referred By: REFERRED SELF Confirmed By:Jimy Irvin
[2022-02-25] MEDS ORDERED: GABAPENTIN 600 MG TAB PO SCH (14:00)
--- NOTE | 2022-02-25 16:45 | Discharge Summary ---
Date of Service February 25, 2022 Admission HPI Per Admitting Provider Is a 42-year-old male with significant past medical history of alcohol abuse with recurrent withdrawal symptoms, tobacco abuse, marijuana abuse and depression apparently came to ER with increasing weakness, shakiness and tremors involving the outstretched hands. He also complains to have hallucination especially when he closes eyes. Denies any palpitation , chest pain or shortness of breath. Minimal abdominal discomfort without any nausea and or vomiting. He has been drinking heavily for the last 1 week and the last drink was this morning. Admission Exam Per Admitting Provider Physical Exam: Lying in bed without any apparent distress but looks depressed Constitutional: + ill appearing and + thin Eyes: PERRL, conjunctivae normal, anicteric sclerae ENMT: external ear and nose normal, oropharynx normal Neck: trachea midline, no thyromegaly Respiratory: no respiratory distress Auscultation: lungs clear to auscultation bilaterally Cardiovascular: Rate/Rhythm: regular rate and regular rhythm; not tachycardic Heart Sounds: normal S1 and normal S2; no murmur Extremities: no edema Gastrointestinal (Abdomen): Inspection/Auscultation: normal bowel sounds; abdomen not distended Percussion/Palpation: + abdomen tender (Minimally tender in the epigastric) and abdomen soft Musculoskeletal: No acute arthritis in any joint Neurologic: Alert, awake and oriented x3. Moving all limbs equally. Mild to moderate tremors involving the outstretched hands Lymphatic: no cervical or axillary lymphadenopathy Principal Diagnosis alcohol abuse Discharge Exam Physical Exam: Constitutional: young M, sitting up in bed in NAD Eyes: PERRL, EOMI, conjunctivae normal, anicteric sclerae ENMT: external ear and nose normal, oropharynx normal Neck: supple Respiratory: no respiratory distress Auscultation: lungs clear to auscultation bilaterally Cardiovascular: Rate/Rhythm: regular rate and regular rhythm; not tachycardic Heart Sounds: normal S1 and normal S2; no murmur Extremities: no edema Gastrointestinal (Abdomen): normal bowel sounds; abdomen not distended, soft Musculoskeletal: moves extremities Neurologic: Alert, awake and oriented x3. Answers appropriately, speech fluent, no facial asymmetry, moves extremities, no tremor noted Discharge Data Allergies Allergy/AdvReac Type Severity Reaction Status Date / Time No Known Allergies Allergy Verified 02/24/22 15:23 Consultations 02/24/22 13:58 ED Decision to Admit Stat Hospital Course (1) Alcohol abuse: Continues to use alcohol and has been trying to quit (2) Alcoholic intoxication: Last admission, in December, very short known alcoholic and has been drinking heavily for the past few days Previously 5 years sober, he is hoping for being sober for a very long time again He was worried that he could have some withdrawal symptoms, however he feels well today Reports that he has to do outpatient rehab, per his employer He is dedicated to abstinence, also reports good support at home He is eager for discharge Currently does not have any withdrawal symptoms, did not use any as needed Ativan He took gabapentin here, however he does not wish to continue that at home (3) Alcohol withdrawal syndrome: alcohol withdrawal protocol, as above Check electrolytes and replace as needed Has had prior inpatient rehab but the patient does not want to go to inpatient this time Plans for outpatient rehab, as above (4) Depression: Does not take any medications (5) Tobacco use: Smoke cessation nicotine patch Total Time Total Time Spent Total Time Spent (In Minutes): 40 Discharge Plan Discharge Items Patient Disposition: Home - Self-Care Reason For Visit: ALCOHOL WITHDRAWL,ALCOHOLISM Discharge Diagnosis: alcohol abuse Activity: Per Instructions section Non-emergency contact: Primary Care Provider Call non-emergency contact if: you have any medication questions and your symptoms worsen Follow-up/Referrals: PCP,NO [Primary Care Provider] - Diet: Regular Addtl Attending Provider Instructions: Follow-up with primary care physician within 1 week. Continue taking your folic acid and thiamine. Recommend to completely abstain from alcohol. Follow-up with alcohol rehab program. Pending Studies at Discharge: No Stand-Alone Forms: [employer], Smoking Cessation Medications and DC Order Prescriptions: No Action No Known Home Medications Discharge Orders: Discharge Order (Routine); Ordered 02/25/22 Ordered By: Dayton Fields Admission Data Admit Date/Time: 02/24/22 15:30 Attending Provider: Dayton Fields Admit Provider: Irineo Dillon Primary Care Provider: JUAN,JAVIER Other Providers: Irineo Dillon Other Interventions: Discharge Summary Assessment (RN) Last Done: 02/25/22 16:39
[2022-02-26] MEDS ORDERED: GABAPENTIN 600 MG TAB PO SCH (18:00)
[2022-02-27 18:56] LABS: Marijuana Quant, GCMS Urine 21 ng/mL (<5)
[2022-02-28] MEDS ORDERED: GABAPENTIN 600 MG TAB PO SCH (06:00)
== END 2022-02-25 17:02 | disposition home or self-care (01) | DRG 897 ==
LOC: ED 11:55 → SUATTDRO 15:30 → 2N 15:30